=== PATIENT | male | born 2000 | race African-American/Black ===

== ENCOUNTER 2019-08-31 23:17 | Emergency (ER) | payer MEDICAID ==
[~2019-08-31] VITALS: Ht 172.7 cm; Wt 68.0 kg
[~2019-08-31 23:17] MED LIST: IBUPROFEN600 MG ORAL; NKM; NORCO 5-325 TA1 EACH ORAL; RANITIDINE HCL150 MG ORAL
[2019-08-31 23:41] VITALS: BP 131/77
[2019-08-31] MEDS ORDERED: LET 3ml Soln TOPIC ONE ×2 (23:45)
[2019-08-31] MEDS ORDERED: Lidocaine 1% Plain 30 ml INJ ONE (23:45)
--- NOTE | 2019-09-01 00:13 | Emergency Room Report ---
History of Present Illness General Chief Complaint: Skin Rash/Abscess Source: Patient Present Illness HPI 19-year-old male presents the ED with boil to left inner thigh for the last 2 days. States this started like a bump and then he "popped it". States it got more painful. Pain is dull, 9 out of 10, nonradiating. Denies fevers or chills. Noted some discharge initially. Denies sick contacts or recent travel. No other aggravating relieving factors. Denies any other associated symptoms COVID-19 risk:Travel to affect: No Has patient experienced kaplan: No Allergies: Coded Allergies: No Known Allergies (Unverified , 05/28/13) Patient History Past Medical History: none Past Surgical History: none Pertinent Family History: none Social History: Denies: smoking, alcohol use, drug use Immunizations: UTD Reviewed Nursing Documentation: PMH: Agreed; PSxH: Agreed Nursing Documentation-PMH Past Medical History: No Stated History Hx Cardiac Problems: No Hx Gastrointestinal Problems: No Hx Neurological Problems: No Review of Systems All Other Systems: negative except mentioned in HPI Physical Exam Vital Signs Date Time Temp Pulse Resp B/P (MAP) Pulse Ox O2 Delivery O2 Flow Rate FiO2 08/31/19 23:28 97.9 86 20 131/77 (95) 97 Room Air Sp02 EP Interpretation: reviewed, normal General Appearance: no apparent distress, alert, GCS 15, non-toxic Head: normocephalic Eyes: bilateral eye normal inspection, bilateral eye PERRL ENT: normal ENT inspection Neck: normal inspection Respiratory: normal inspection Cardiovascular #1: normal inspection Gastrointestinal: normal inspection Rectal: deferred Genitourinary: no CVA tenderness Musculoskeletal: normal inspection Neurologic: alert, motor strength/tone normal, oriented x3, sensory intact, responsive, speech normal Psychiatric: normal inspection Skin: other - abscess to L inner thigh. surrounding erythema/induration Lymphatic: normal inspection Procedures Incision and Drainage Incision and Drainage : Consent: Verbal Blade Size: 11 I & D Procedure: betadine prep, sterile drapes applied, sterile dressing applied, gauze wick placed Wound Location: lower extremity - L thigh Wound's Depth, Shape: other - abscess Wound Explored: purulent discharge Anesthesia: 1% Lidocaine Splint Applied?: No Sling Applied?: No Patient Tolerated: Well Complications: None Medical Decision Making Diagnostic Impression: Primary Impression: Abscess of thigh ER Course Hospital Course 19 yo M presents with pain/swelling L thigh Clinical course Patient placed on stretcher. After initial history and physical I ordered topical L.E.T and lidocaine After area anesthetized I used a scalpel to incise the abscess. Use forceps to break up any loculations. Small amount of purulent discharge expressed. Patient tolerated procedure without complication. Dressing applied. Discussed findings with patient. Given pain meds and antibiotics here. Will discharge home with antibiotics. Safe for discharge with close outpatient follow-up. Does not have a PMD. I will provide referrals Diagnosis - abscess of thigh Stable and discharged to home with prescription for augmentin, [place]. wound Care instructions given. Followup with PMD. Return to ED if any signs of infection develop Last Vital Signs Date Time Temp Pulse Resp B/P (MAP) Pulse Ox O2 Delivery O2 Flow Rate FiO2 08/31/19 23:41 97.9 83 20 131/77 97 Room Air Status: improved Disposition: HOME, SELF-CARE Condition: Stable Scripts Amoxicillin/Potassium Clav 875-125* (AUGMENTIN 875-125 TABLET*) 1 Each Tablet 1 TAB ORAL TWICE A DAY, #14 TAB Prov: Armani Redman MD 09/01/19 Hydrocodone Bit/Acetaminophen 5-325* (NORCO 5-325 TABLET*) 1 Each Tablet 1 TAB ORAL Q6H PRN for FOR PAIN, #10 TAB 0 Refills Prov: Armani Redman MD 09/01/19 Referrals: [facility],REFERR[facility] (PCP) Armani Redman MD Sep 01, 2019 00:13
[2019-09-01] MEDS ORDERED: NORCO 5-325 TA1 EAC1 ORAL (00:37)
[2019-09-01] MEDS ORDERED: AUGMENTIN 875-1 EAC1 ORAL (00:37)
[2019-09-01 00:43] VITALS: BP 131/77
[2019-09-01] MEDS ORDERED: Augmentin 875mg Tab ORAL ONE (00:45)
[2019-09-01] MEDS ORDERED: HYDROcodone/Acetamin 5/325 tab ORAL ONE (00:45)
== END 2019-09-01 00:43 | disposition home or self-care (01) ==
LOC: EMR 23:40
DX: L02.416 Cutaneous abscess of left lower limb (principal)
CPT/HCPCS: 10060; J2001; Z7502; 99282